=== PATIENT | male | born 1985 | race Caucasian/White ===

== ENCOUNTER 2022-01-06 18:05 | Emergency (ER) | payer MEDICAID ==
[~2022-01-06] VITALS: Ht 180.3 cm; Wt 99.8 kg
[2022-01-06 18:05] VITALS: BP_SYST 133
--- NOTE | 2022-01-06 18:05 | NUR ---
Placed in room 01 . Placed on traffic monitor specialist, blood pressure machine and pulse oximeter. To gown for exam. Side rails up. Report given to BRANT MEZA
--- NOTE | 2022-01-06 18:07 | NUR ---
ER Dr. BALDWIN at bedside examining patient.
[2022-01-06] MEDS ORDERED: ONDANSETRON HCL 4 MG/2 ML VIAL IVP ONE (18:15)
--- NOTE | 2022-01-06 18:20 | NUR ---
BIB EMS FROM [facility] ROOM WITH C/O FENTANYL OVERDOE. PT WAS UNRESPONSIVE UPON EMS ARRIVAL AND GIVEN NARCAN 4MG IN FIELD. UPON ARRIVAL, PT IS BREATHING ON HIS OWN, GCS 15 BUT DROWSY. +NAUSEA AND RETCHING BUT NO VOMITING. PT DENIES SI/HI, PT STATES HE WAS NOT TRYING TO HURT HIMSELF. PT IS SATING AT 86-87% ON ROOM AIR, PLACED ON 4L NC, SATS IMPROVED TO 93-95%. AIRWAY PATENT. VS OTHERWISE STABLE. WILL CONT TO MONITOR
--- NOTE | 2022-01-06 19:24 | NUR ---
Report given to Cristina GUO
[2022-01-06] MEDS ORDERED: DIPHENHYDRAMINE INJ 50 MG/ML VIAL IVP ONE (19:30)
[2022-01-06] MEDS ORDERED: HALOPERIDOL LACTATE 5 MG/ML VIAL IVP ONE (19:30)
--- NOTE | 2022-01-06 19:30 | NUR ---
Pt vomiting at this time s/p drinking water. MD Ferguson made aware. Refer to MAR for orders.
--- NOTE | 2022-01-06 19:35 | NUR ---
Pt given warm blanket and urinal at this time.
[2022-01-06] MEDS ORDERED: NACL 0.9% 1,000 ML IV ONE (19:45)
--- NOTE | 2022-01-06 20:15 | NUR ---
Patient asleep at intervals, voiced relieve from N/V. Pending MD eval and determination.
[2022-01-06 20:16] LABS: BASOPHILS # (AUTO) 0.1 K/uL (0.0-0.2)
[2022-01-06 20:21] LABS: BASOPHILS % (AUTO) 0.3 % (0.0-2.0); EOSINOPHILS % (AUTO) 0.1 % (0.0-4.0); HEMOGLOBIN 14.2 g/dL (14.0-18.0); LYMPHOCYTES # (AUTO) 1.1 K/uL (1.0-5.5); LYMPHOCYTES % (AUTO) 6.5 % (20.5-51.5); MEAN CORPUSCULAR HEMOGLOBIN 32 pg (27-31); MEAN CORPUSCULAR HGB CONC 34 % (32-36); MEAN CORPUSCULAR VOLUME 95 fL (79.0-98.0); MONOCYTES # (AUTO) 0.8 K/uL (0.0-1.0); MONOCYTES % (AUTO) 4.6 % (1.7-9.3); NEUTROPHILS # (AUTO) 15.4 K/uL (1.8-7.7); NEUTROPHILS % (AUTO) 88.5 % (40.0-70.0); PLATELET COUNT (AUTO) 282 K/uL (130-430); RED BLOOD CELL COUNT(AUTO) 4.41 MIL/uL (4.2-6.2); RED CELL DISTRIBUTION WIDTH 14.1 % (9.0-15.0); WHITE BLOOD COUNT (AUTO) 17.5 K/uL (4.8-10.8)
[2022-01-06 20:25] LABS: CREATININE 1.03 mg/dL (0.55-1.30); POTASSIUM 3.7 mmol/L (3.5-5.1)
[2022-01-06 20:31] LABS: ALBUMIN 3.7 g/dL (3.4-4.8); TOTAL BILIRUBIN 0.3 mg/dL (0.0-1.0)
[2022-01-06 21:30] VITALS: BP_SYST 113
--- NOTE | 2022-01-06 21:30 | NUR ---
Patient given written and verbal discharge instructions and verbalizes understanding. ER MD discussed with patient the results and treatment provided. Patient in stable condition. ID arm band removed. IV catheter removed intact and dressing applied, no active bleeding. Patient educated on pain management and to follow up with PMD. Pain Scale 0/10. Opportunity for questions provided and answered.
== END 2022-01-06 21:30 | disposition home or self-care (01) ==
LOC: SED 18:05
DX: T40.411A Poisoning by fentanyl or fentanyl analogs, accidental (unintentional), initial encounter (principal); Z79.899 Other long term (current) drug therapy; Y92.89 Other specified places as the place of occurrence of the external cause
CPT/HCPCS: 99285; 96374; 96375; 96361; 80053; 85025; 36415; J1200; J1630; J2405; J7030